=== PATIENT | female | born 1980 | race Caucasian/White ===

== ENCOUNTER 2022-03-29 05:38 | Emergency (ER) | payer OTHER, SELFPAY ==
[2022-03-29 05:47] VITALS: BP 144/85; PULSE 112; RESP 18; TEMP 36.9; O2SAT 98; BMI 25.7
[2022-03-29] MEDS: IBUPROFEN 100 MG/5 ML SUSP 600 MG PO (06:46)
--- NOTE | 2022-03-29 06:50 | ED.GENADULT ---
HPI - General Adult General Chief complaint: Sore Throat Stated complaint: Exposed to Covid/lost of voice Time Seen by Provider: 03/29/22 05:46 History of Present Illness HPI narrative: 41-year-old woman presenting to the emergency department with primary complaint I think of sore throat. Increasingly sore over a couple of days. Now becoming laryngitic. Has not had any fever. Used to get strep throat a lot as a kid. She has not had any rash. Is not short of breath. Is really hard to swallow due to the pain. tested positive for COVID 2 days ago. No history of renal insufficiency. Related Data Home Medications Medication Instructions Recorded Confirmed amitriptyline 10 mg tablet 10 mg PO DAILY 03/29/22 03/29/22 Previous Rx's Medication Instructions Recorded nirmatrelvir 300 mg (150 mg See Rx Instructions PO .COMPLEX 03/29/22 x2)-ritonavir 100 mg tablet,dose #30 ea pack(EUA) (Paxlovid) prednisone 20 mg tablet 40 mg PO DAILY 5 days #10 tabs 03/29/22 Allergies Allergy/AdvReac Type Severity Reaction Status Date / Time Penicillins Allergy Mild Rash Verified 03/29/22 05:50 Review of Systems Status of ROS: Reports: 6 or more systems reviewed and unremarkable except as noted in History and below [facility] Medical History Chronic migraine Surgical History (Updated 03/29/22 @ 05:55 by Carrillo Bingham RN) No significant past surgical history Social History Smoking Status: Never smoker Do you use any of these nicotine containing products: None Second hand tobacco smoke exposure: No How often do you have a drink containing alcohol: never How often do you have six or more drinks on one occasion: Never AUDIT-C Alcohol total score: 0 Non-prescribed substance use: denies use Exam Narrative: Exam Narrative: Pleasant. Sounds mildly laryngitic. Looks rather uncomfortable. Breathing easily. No stridor. Lungs are clear. Cardiovascular is tachycardic in a regular rhythm. As I listen it does slow little bit. Neck is supple with mild anterior upper cervical lymphadenopathy. Oropharynx is moist. Way in the far posterior oropharynx is mildly erythematous and with a little erythematous speckling. Const: Vital Signs, click to edit/add: Vital Signs - 24 hr 03/29/22 05:47 03/29/22 05:47 Temperature 98.4 F 98.4 F Pulse Rate [Right Pulse Oximeter] 112 H 112 H Respiratory Rate 18 18 Blood Pressure [Le ft Upper Arm] 144/85 H 144/85 H Pulse Oximetry 98 98 Oxygen Delivery Me thod Room Air Room Air Documenting provider has reviewed patient's vital signs: yes Course Vital Signs Vital signs: Initial Vital Signs Temperature 98.4 F 03/29/22 05:47 Temperature Source Temporal Artery Scan 03/29/22 05:47 Pulse Rate 112 H 03/29/22 05:47 Respiratory Rate 18 03/29/22 05:47 Blood Pressure 144/85 H 03/29/22 05:47 Blood Pressure Mean 104 03/29/22 05:47 Blood Pressure Position Sitting 03/29/22 05:47 Pulse Oximetry 98 03/29/22 05:47 Oxygen Delivery Method 03/29/22 05:47 Vital Signs Temperature 98.4 F 03/29/22 05:47 Pulse Rate 112 H 03/29/22 05:47 Respiratory Rate 18 03/29/22 05:47 Blood Pressure 144/85 H 03/29/22 05:47 Pulse Oximetry 98 03/29/22 05:47 Oxygen Delivery Method 03/29/22 05:47 Temperature 98.4 F 03/29/22 05:47 Pulse Rate 112 H 03/29/22 05:47 Respiratory Rate 18 03/29/22 05:47 Blood Pressure 144/85 H 03/29/22 05:47 Pulse Oximetry 98 03/29/22 05:47 Oxygen Delivery Method 03/29/22 05:47 Medical Decision Making MDM Narrative Medical decision making narrative: Triple swab's already been collected. I swabbed yet for strep. Given ibuprofen. This did help some. Help further with benzocaine throat spray. Indeed positive for COVID 19. Strep testing was negative. Lab Data Labs: Lab Results 03/29/22 03/29/22 Range/Units 06:15 06:39 SARS-CoV-2 (PCR) POSITIVE SARS-CoV-2 A (Negative) Influenza Type A (PCR) Negative PCR FLU A (Negative) Influenza Type B (PCR) Negative PCR FLU B (Negative) RSV (PCR) Negative PCR RSV (Negative) Group A Strep DNA NOT DETECTED (Not Detectd) Discharge Plan Discharge Clinical Impression: COVID-19, Laryngitis, Pharyngitis Patient Disposition: Home w/ Parent or Adult Condition: Stable Additional Instructions: Stay well-hydrated. Can take up to 800 mg of ibuprofen per dose or up to 1000 mg of acetaminophen. These may be combined. Alternative to the ibuprofen would be up to 500 mg of naproxen 2 times daily. If you seem to be having more trouble breathing, begin checking oxygenation with a saturation monitor. Return to the emergency department for oxygen saturations of 90% or less. Prescriptions: New Paxlovid (EUA) 300 mg (150 mg x 2)-100 mg tablets,dose pack See Rx Instructions .ROUTE .COMPLEX Qty: 30 0RF Rx Instructions: take TWO 150 mg tablets of nirmatrelvir with ONE 100 mg tablet of ritonavir twice daily for 5 days prednisone 20 mg tablet 40 mg PO DAILY 5 Days Qty: 10 0RF No Action amitriptyline 10 mg tablet 10 mg PO DAILY Follow Up/Referrals: Marilu Alcocer MD [Primary Care Provider] - Stand Alone Forms: [employer] Info Instructions
[2022-03-29 06:55] LABS: PCR FLU A Negative PCR FLU A (Negative); PCR FLU B Negative PCR FLU B (Negative); PCR RSV Negative PCR RSV (Negative)
[2022-03-29 07:23] LABS: SARS PCR* POSITIVE SARS-CoV-2 (Negative)
[2022-03-29 07:48] LABS: Strep A DNA Probe* NOT DETECTED (Not Detectd)
== END 2022-03-29 08:35 | disposition home or self-care (01) ==
PROVIDERS: Emergency Provider Family Medicine; PCP Family Medicine
DX: U07.1 COVID-19 (principal)
CPT/HCPCS: 87502; 87634; 87635; 87651; 99283; 99284; A9270

== ENCOUNTER 2022-04-05 20:29 | Emergency (ER) | payer OTHER, SELFPAY ==
[2022-04-05 20:34] VITALS: BP 134/82; PULSE 117; RESP 16; TEMP 36.8; O2SAT 100; BMI 25.7
--- NOTE | 2022-04-05 21:12 | ED_ITS ---
HPI - Headache General Chief Complaint: Headache/Migraine Stated Complaint: Chronic Migraines, Migraine more severe Time Seen by Provider: 04/05/22 20:38 History of Present Illness HPI Narrative: This 41-year-old female comes in with migraine-type headache. She was diagnosed with COVID a few days ago and this has triggered worsening headaches for her. She states that she gets headaches most every day and they typically start in the occipital region. This headache was the same but has spread throughout her head. She does have some nausea and light sensitivity. She does not report any fevers. Related Data Home Medications Medication Instructions Recorded Confirmed amitriptyline 10 mg tablet 20 mg PO DAILY 03/29/22 04/05/22 Previous Rx's Medication Instructions Recorded nirmatrelvir 300 mg (150 mg See Rx Instructions PO .COMPLEX 03/29/22 x2)-ritonavir 100 mg tablet,dose #30 ea pack(EUA) (Paxlovid) Allergies Allergy/AdvReac Type Severity Reaction Status Date / Time Penicillins Allergy Mild Rash Verified 04/05/22 20:39 Review of Systems Status of ROS: Reports: 10 or more systems reviewed and unremarkable except as noted in History and below Narrative: Constitutional: No fevers, no weight gain or loss. Eyes: No discharge. No vision changes. HENT: No congestion, no sore throat, no ear pain. Cardiovascular: No chest pain, no palpitations. Respiratory: No shortness of breath, no wheezes, no cough. Gastrointestinal: No abdominal pain, no vomiting, no diarrhea. Genitourinary: No dysuria, no hematuria. Musculoskeletal: Normal range of motion. Skin: No rashes, no pruritis. Neurological: No dizziness, weakness, sensory change, speech change. Endo/Heme/Allergies: No bruising or bleeding. No polydipsia. Pysch: no suicidality, no anxiety, no insomnia. All other systems reviewed and are negative. [facility] Medical History Chronic migraine Surgical History (Updated 03/29/22 @ 05:55 by Carrillo Bingham RN) No significant past surgical history Social History Smoking Status: Never smoker Do you use any of these nicotine containing products: None Second hand tobacco smoke exposure: No How often do you have a drink containing alcohol: never How often do you have six or more drinks on one occasion: Never AUDIT-C Alcohol total score: 0 Non-prescribed substance use: denies use Exam Narrative: Exam Narrative: Constitutional: Well-developed, well-nourished, no acute distress. HEENT: Normocephalic, atraumatic. Neck: Normal range of motion. Nontender. Supple. Heart: Regular. No murmurs. Normal rate. Intact distal pulses. Lungs: Clear to auscultation. No chest discomfort. No wheezes, rhonchi, or rales. Abdomen: Normal bowel sounds. Nontender. No rebound tenderness. Genitalia: Deferred. Back: No midline tenderness. Normal range of motion. Extremities: Normal range of motion. No injury. Skin: Intact. No rash. Warm. No erythema or pallor. Neurologic: No altered sensation. No weakness. Alert and oriented. Psychiatric: No suicidality. No anxiety or depression. No insomnia. Nursing notes and vitals signs are reviewed. Const: Vital Signs, click to edit/add: Vital Signs - 24 hr 04/05/22 20:34 Temperature 98.2 F Pulse Rate [Right Pulse Oximeter] 117 H Respiratory Rate 16 Blood Pressure [Ri ght Upper Arm] 134/82 Pulse Oximetry 100 Oxygen Delivery Me thod Room Air Course Vital Signs Vital signs: Initial Vital Signs Temperature 98.2 F 04/05/22 20:34 Temperature Source Temporal Artery Scan 04/05/22 20:34 Pulse Rate 117 H 04/05/22 20:34 Respiratory Rate 16 04/05/22 20:34 Blood Pressure 134/82 04/05/22 20:34 Blood Pressure Mean 99 04/05/22 20:34 Blood Pressure Position Sitting 04/05/22 20:34 Pulse Oximetry 100 04/05/22 20:34 Oxygen Delivery Method 04/05/22 20:34 Vital Signs Temperature 98.2 F 04/05/22 20:34 Pulse Rate 117 H 04/05/22 20:34 Respiratory Rate 16 04/05/22 20:34 Blood Pressure 134/82 04/05/22 20:34 Pulse Oximetry 100 04/05/22 20:34 Oxygen Delivery Method 04/05/22 20:34 Temperature 98.2 F 04/05/22 20:34 Pulse Rate 117 H 04/05/22 20:34 Respiratory Rate 16 04/05/22 20:34 Blood Pressure 134/82 04/05/22 20:34 Pulse Oximetry 100 04/05/22 20:34 Oxygen Delivery Method 04/05/22 20:34 MDM - Headache MDM Narrative Medical decision making narrative: This patient comes in with flare up of recurrent headaches. She states that she has occipital or tension headaches most every day but sometimes this spreads throughout her head and be comes more like migraine symptoms. An IV was established where she received 30 mg of Toradol, Zofran 4 mg, and Benadryl 50 mg. I did also offer an injection Solu-Medrol and lidocaine in the occipital region as she is having frequent tension headaches. She is agreeable to this plan. She received a total of 6 mL split equally on either side of the nuchal ligament overlying the occipital nerves. This was a mixture of 125 mg Solu- Medrol and 1% lidocaine. Patient tolerated this procedure well. This is occurring at the end of my shift and it is assumed that she will have sufficient resolution of symptoms with the above-listed medications. If not she can receive a dose of ketamine or what ever the overnight physician wishes to use. She will be okay to go home regardless. Discharge Plan Discharge Clinical Impression: Migraine, Tension headache Patient Disposition: Home, Self-Care Condition: Stable Additional Instructions: Continue current plans. Use [id number] medicines as needed and directed. Follow up with MD or return if worsening. Prescriptions: No Action amitriptyline 10 mg tablet 20 mg PO DAILY Paxlovid (EUA) 300 mg (150 mg x 2)-100 mg tablets,dose pack See Rx Instructions .ROUTE .COMPLEX Qty: 30 0RF Hold Instructions: concerned about side effects Rx Instructions: take TWO 150 mg tablets of nirmatrelvir with ONE 100 mg tablet of ritonavir twice daily for 5 days Follow Up/Referrals: Marilu Alcocer MD [Primary Care Provider] - Stand Alone Forms: [employer] Info Instructions
[2022-04-05] MEDS: diphenhydrAMINE 50 MG/ML inj IVP (21:18)
[2022-04-05] MEDS: ONDANSETRON 2 MG/ML inj 4 MG IVP (21:18)
[2022-04-05] MEDS: KETOROLAC 30 MG/ML inj IVP (21:18)
--- NOTE | 2022-04-05 22:03 | ED.NURSE ---
Patient states her symptoms are improving. MD updated. Ok to discharge.
[2022-04-05 22:13] VITALS: BP 119/72; PULSE 93; RESP 16
== END 2022-04-05 22:14 | disposition home or self-care (01) ==
PROVIDERS: Emergency Provider Emergency Medicine Emergency Medical Services; PCP Family Medicine
DX: R51.9 Headache, unspecified (principal)
CPT/HCPCS: 96372; 96374; 96375; 99284; J1200; J1885; J2405